=== PATIENT | male | born 1990 | race Caucasian/White ===

== ENCOUNTER 2019-11-26 05:40 | Day surgery (SDC) | payer OTHER ==
[~2019-11-26 05:40] MED LIST: DICLOFENAC-MIS1 EAC1 PO
== END 2019-11-26 15:30 | disposition home or self-care (01) ==
LOC: CIR.AMB 05:40
DX: S76.111A Strain of right quadriceps muscle, fascia and tendon, initial encounter (principal); M70.41 Prepatellar bursitis, right knee